=== PATIENT | female | born 1995 | race Caucasian/White ===

== ENCOUNTER 2016-04-18 09:10 | Emergency (ER) | payer OTHER ==
[~2016-04-18] VITALS: Ht 170.2 cm; Wt 60.3 kg
[~2016-04-18 09:10] MED LIST: ADVAIR HFA120 INHALA IH; ANAPROX DS550 M1 PO; AZITHROMYCIN250 MG1 PO; BACTRIM,SEPT1 TABLET PO; BUSPAR10 MG PO; CLONIDINE HCL0.1 MG PO; DELTASONE20 M1 PO; DOXYCYCLINE HY100 M3 PO; DOXYCYCLINE HY100 MG PO; FLEXERIL10 MG PO; FLEXERIL5 MG PO; GEODON40 MG PO; KEFLEX500 MG PO; LEXAPRO10 MG PO; LIDOCAINE20 MG/1 M5 PO; LIDODERM 5% P1 PATCH TD; LORTAB 5-325 M1 EACH PO; MEDROL DOSEPAK4 MG PO; MOBIC15 MG PO; MOTRIN600 MG PO; NAPROSYN500 MG PO; NICOTINE GUM2 MG BC; NOHOMEMEDS; PERCOCET 5/31 TABLET PO; PREDNISONE10 MG PO; PROBIOTIC1 EAC1 PO; PROVENTIL HFA6.7 GM IH; PULMICORT FLE180 MCG IH; PYRIDIUM100 MG PO; ROBITUSSIN AC,T10 ML PO; TRAZODONE HCL50 MG PO; ULTRAM50 MG PO; VENTOLIN HFA18 GM IH; XANAX2 MG PO; ZITHROMAX250 MG PO; ZOFRAN4 MG PO; ZOFRAN8 MG PO
[2016-04-18 10:11] LABS: EOSINOPHIL (%) 3.1 % (0-5); EOSINOPHIL COUNT 0.2 K/uL (0-0.3); HEMATOCRIT 37.3 % (36.0-46.0); LYMPHOCYTE COUNT 2.3 K/uL (1.0-2.8); MCH 28.7 PG (29.0-34.0); MCV 84.2 FL (83-99); MEAN PLAT.VOLUME 10.3 uM^3 (9.5-12.4); MONOCYTE (%) 9.4 % (3-12); MONOCYTE COUNT 0.5 K/uL (0-0.8); NEUTROPHIL (%) 41.9 % (45-76); NEUTROPHIL COUNT 2.2 K/uL (1.8-6.4); PLATELET COUNT 217 K/uL (156-360); RBC DIS.WIDTH-CV 13.8 % (11.8-14.6); RBC DIS.WIDTH-SD 41.2 % (39-53); RED BLOOD COUNT 4.43 M/uL (3.80-5.20); WHITE BLOOD COUNT 5.1 K/uL (4.1-10.2)
[2016-04-18 10:23] LABS: CHLORIDE 109 mEq/L (99-109); POTASSIUM 3.3 mEq/L (3.7-5.4); SODIUM 143 mEq/L (136-147)
[2016-04-18 10:25] LABS: GLUCOSE 75 mg/dL (70-99)
[2016-04-18 10:26] LABS: ANION GAP 14 MEQ/L (2-14)
[2016-04-18 10:27] LABS: TOTAL BILIRUBIN 0.4 mg/dL (0.0-1.0)
[2016-04-18 10:28] LABS: SERUM ETHYL ALCOHOL 155 mg/dL
[2016-04-18 10:29] LABS: GFR ESTIMATE (CALCULATED) > 59 mL/min/
[2016-04-18 10:30] LABS: ALKALINE PHOSPHATASE 65 IU/L (3-129)
[2016-04-18 10:31] LABS: UREA NITROGEN (BUN) 8 mg/dL (9-23)
[2016-04-18 10:32] LABS: SALICYLATE < 5.0 MG/DL (15-30)
[2016-04-18 10:33] LABS: ADD MIUA? YES; BILIRUBIN NEGATIVE; BLOOD NEGATIVE; COLOR YELLOW ((YELLOW)); GLUCOSE (STRIP) NEGATIVE; KETONES TRACE; LEUKOCYTES TRACE; NITRITE NEGATIVE; PROTEIN (STRIP) NEGATIVE; SPECIFIC GRAVITY 1.017 (1.000-1.030)
[2016-04-18 10:40] LABS: QUANTITATIVE HCG < 4.0 MIU/ML
[2016-04-18 10:44] LABS: AMPHETAMINE NEGATIVE (500 ng/mL); BENZODIAZEPINES PRESUMPTIVE POSITIVE (150 ng/mL); COCAINE PRESUMPTIVE POSITIVE (150 ng/mL); METHAMPHETAMINE NEGATIVE (500 ng/mL); OPIATES (MORPHINE) NEGATIVE (100 ng/mL); PHENCYCLIDINE PRESUMPTIVE POSITIVE (25 ng/mL); THC CANNABINOIDS NEGATIVE (50 ng/mL)
[2016-04-18 10:47] LABS: BARBITURATES NEGATIVE (200 ng/mL); METHADONE NEGATIVE (200 ng/mL); OXYCODONE NEGATIVE (100 ng/mL); PROPOXYPHENE NEGATIVE (300 ng/mL); TRICYCLIC ANTIDEPRESSANTS NEGATIVE (300 ng/mL)
[2016-04-18 10:48] LABS: ADD MEDTOX COMMENT Y; INTERNAL CONTROLS VALID? YES
[2016-04-18 11:07] LABS: BACTERIA NONE SEEN; CASTS NONE SEEN /LPF; CRYSTALS NONE SEEN; EPITHELIAL CELLS RARE; MUCUS NONE SEEN; RED BLOOD CELLS NONE SEEN /HPF (0-5); UCUL ADDED? NO; WHITE BLOOD CELLS RARE /HPF (0-5)
[2016-04-18 11:25] LABS: BENZODIAZEPINES QUANT VALUE 0 NG/ML
[2016-04-18 11:26] LABS: BENZODIAZEPINES, URINE SCREEN Negative (200 ng/mL)
[2016-04-18 17:32] VITALS: BP 105/52
== END 2016-04-18 17:47 | disposition home or self-care (01) ==
LOC: EME 09:10
PROVIDERS: Emergency Medicine
DX: F32.9 Major depressive disorder, single episode, unspecified (principal); F19.10 Other psychoactive substance abuse, uncomplicated; F14.10 Cocaine abuse, uncomplicated; J45.909 Unspecified asthma, uncomplicated; J44.9 Chronic obstructive pulmonary disease, unspecified; I10 Essential (primary) hypertension; F17.200 Nicotine dependence, unspecified, uncomplicated
CPT/HCPCS: 80053; 81003; 84702; 84999; 85025; 90837; 99281; 99285; G0480; J1630; J2060

== ENCOUNTER 2016-08-03 02:39 | Emergency (ER) | payer OTHER ==
[~2016-08-03] VITALS: Ht 170.2 cm; Wt 69.9 kg
[2016-08-03] MEDS ORDERED: NORCO 5/3251 TABLET PO (03:58)
[2016-08-03 04:13] VITALS: BP 125/80
== END 2016-08-03 03:52 | disposition home or self-care (01) ==
LOC: EME 02:39
PROC: 2W3SX1Z Immobilization of Right Foot using Splint (ICD-10-PCS; principal; 2016-08-03)
DX: S92.354A Nondisplaced fracture of fifth metatarsal bone, right foot, initial encounter for closed fracture (principal); W01.0XXA Fall on same level from slipping, tripping and stumbling without subsequent striking against object, initial encounter; Y93.02 Activity, running; F17.200 Nicotine dependence, unspecified, uncomplicated
CPT/HCPCS: 73630; 99281; 99283

== ENCOUNTER 2016-09-09 01:37 | Emergency (ER) | payer OTHER ==
[~2016-09-09] VITALS: Ht 170.2 cm; Wt 68.2 kg
[~2016-09-09 01:37] MED LIST changes: +NORCO 5/3251 TABLET PO
[2016-09-09 03:08] LABS: ADD MIUA? YES; BILIRUBIN SMALL; BLOOD NEGATIVE; COLOR YELLOW ((YELLOW)); GLUCOSE (STRIP) NEGATIVE; KETONES 5; LEUKOCYTES TRACE; NITRITE NEGATIVE; PROTEIN (STRIP) 30; SPECIFIC GRAVITY 1.027 (1.000-1.030)
[2016-09-09 03:10] LABS: EOSINOPHIL (%) 6.2 % (0-5); EOSINOPHIL COUNT 0.5 K/uL (0-0.3); HEMATOCRIT 40.1 % (36.0-46.0); IMMATURE GRANULOCYTE (%) 0.3 % (0.0-0.7); INSTRUMENT ABS NEUTROPHIL CT 3.9 K/uL; LYMPHOCYTE COUNT 2.6 K/uL (1.0-2.8); MCH 29.1 PG (29.0-34.0); MCHC 33.9 G/DL (30.0-36.0); MCV 85.9 FL (83-99); MONOCYTE (%) 7.3 % (3-12); MONOCYTE COUNT 0.6 K/uL (0-0.8); NEUTROPHIL (%) 51.5 % (45-76); NEUTROPHIL COUNT 3.9 K/uL (1.8-6.4); PLATELET COUNT 209 K/uL (156-360); RBC DIS.WIDTH-CV 13.2 % (11.8-14.6); RBC DIS.WIDTH-SD 41.1 % (39-53); RED BLOOD COUNT 4.67 M/uL (3.80-5.20); WHITE BLOOD COUNT 7.6 K/uL (4.1-10.2)
[2016-09-09 03:20] LABS: BACTERIA RARE /HPF; EPITHELIAL CELLS 1+ /HPF; MUCUS TRACE /LPF; RED BLOOD CELLS 0-5 /HPF (0-5); UCUL ADDED? NO; WHITE BLOOD CELLS 0-5 /HPF (0-5)
[2016-09-09 03:23] LABS: CHLORIDE 108 mEq/L (99-109); SODIUM 142 mEq/L (136-147)
[2016-09-09 03:25] LABS: GLUCOSE 77 mg/dL (70-99)
[2016-09-09 03:27] LABS: ANION GAP 9 MEQ/L (2-14); TOTAL BILIRUBIN 0.6 mg/dL (0.0-1.0)
[2016-09-09 03:29] LABS: ALKALINE PHOSPHATASE 79 IU/L (3-129); GFR ESTIMATE (CALCULATED) > 59 mL/min/
[2016-09-09 03:30] LABS: UREA NITROGEN (BUN) 11 mg/dL (9-23)
[2016-09-09 03:32] LABS: TROP-I INTERPRETATION NEGATIVE; TROPONIN-I 0.05 ng/mL (0.0-0.30)
[2016-09-09 03:38] LABS: QUANTITATIVE HCG < 4.0 MIU/ML
[2016-09-09] MEDS ORDERED: DOXYCYCLINE HY100 MG PO (05:32)
[2016-09-09] MEDS ORDERED: FLAGYL500 MG PO (05:32)
[2016-09-09] MEDS ORDERED: DIFLUCAN150 MG PO (05:32)
[2016-09-09 05:38] VITALS: BP 108/65
[2016-09-09 07:25] LABS: CANDIDA DNA PROBE NEGATIVE; GARDNERELLA DNA PROBE NEGATIVE; INTERNAL CONTROL VALID? YES
[2016-09-12 14:40] LABS: CHLAMYDIA TRACHOMATIS NEGATIVE; NEISSERIA GONORRHOEAE NEGATIVE
== END 2016-09-09 05:40 | disposition home or self-care (01) ==
LOC: EME 01:37
PROVIDERS: Emergency Medicine
DX: T76.21XA Adult sexual abuse, suspected, initial encounter (principal); N73.9 Female pelvic inflammatory disease, unspecified; N89.8 Other specified noninflammatory disorders of vagina; S00.12XA Contusion of left eyelid and periocular area, initial encounter; X58.XXXA Exposure to other specified factors, initial encounter; Z11.3 Encounter for screening for infections with a predominantly sexual mode of transmission; F17.200 Nicotine dependence, unspecified, uncomplicated
CPT/HCPCS: 70450; 71020; 76856; 80053; 81003; 84484; 84702; 85025; 87210; 87480; 87491; 87510; 87591; 87660; 99281; 99285; J0696; J7030; J7050

== ENCOUNTER 2016-10-20 19:58 | Emergency (ER) | payer OTHER ==
[~2016-10-20] VITALS: Ht 172.7 cm; Wt 65.0 kg
[~2016-10-20 19:58] MED LIST changes: +DIFLUCAN150 MG PO; +FLAGYL500 MG PO
[2016-10-20 23:52] LABS: HEMATOCRIT 41.8 % (36.0-46.0); MCH 29.5 PG (29.0-34.0); MCHC 34.2 G/DL (30.0-36.0); MCV 86.4 FL (83-99); PLATELET COUNT 156 K/uL (156-360); RBC DIS.WIDTH-CV 13.2 % (11.8-14.6); RBC DIS.WIDTH-SD 41.2 % (39-53); RED BLOOD COUNT 4.84 M/uL (3.80-5.20); WHITE BLOOD COUNT 6.1 K/uL (4.1-10.2)
[2016-10-21 00:26] LABS: CHLORIDE 106 mEq/L (99-109); POTASSIUM 4.2 mEq/L (3.7-5.4); SODIUM 142 mEq/L (136-147)
[2016-10-21 00:27] LABS: GLUCOSE 91 mg/dL (70-99)
[2016-10-21 00:28] LABS: QUANTITATIVE HCG < 4.0 MIU/ML
[2016-10-21 00:29] LABS: ANION GAP 8 MEQ/L (2-14)
[2016-10-21 00:31] LABS: GFR ESTIMATE (CALCULATED) > 59 mL/min/
[2016-10-21 00:37] LABS: ADD MIUA? YES; BILIRUBIN NEGATIVE; BLOOD NEGATIVE; COLOR YELLOW ((YELLOW)); GLUCOSE (STRIP) NEGATIVE; KETONES 5; LEUKOCYTES TRACE; NITRITE NEGATIVE; PROTEIN (STRIP) 30; SPECIFIC GRAVITY 1.021 (1.000-1.030)
[2016-10-21 00:52] LABS: UREA NITROGEN (BUN) 7 mg/dL (9-23)
[2016-10-21 01:31] LABS: AMORPHOUS URATES CRYSTALS 1+; BACTERIA 1+ /HPF; CRYSTALS PRESENT; EPITHELIAL CELLS 2+ /HPF; MUCUS 3+ /LPF; RED BLOOD CELLS NONE SEEN /HPF (0-5); UCUL ADDED? NO; WHITE BLOOD CELLS 0-5 /HPF (0-5)
[2016-10-21] MEDS ORDERED: FLAGYL500 MG PO (01:37)
[2016-10-21 01:54] VITALS: BP 129/80
[2016-10-21 12:19] LABS: CHLAMYDIA TRACHOMATIS NEGATIVE; NEISSERIA GONORRHOEAE NEGATIVE
== END 2016-10-21 01:55 | disposition home or self-care (01) ==
LOC: RME 19:58 → EME 19:58 → RME 10-21 01:55
PROVIDERS: Physician Assistant
DX: N89.8 Other specified noninflammatory disorders of vagina (principal); Z91.040 Latex allergy status; F17.200 Nicotine dependence, unspecified, uncomplicated
CPT/HCPCS: 80048; 81003; 84702; 85027; 87210; 87491; 87591; 99281; 99284

== ENCOUNTER 2016-11-05 23:57 | Emergency (ER) | payer OTHER ==
[~2016-11-05] VITALS: Ht 172.7 cm; Wt 65.9 kg
[2016-11-06 02:17] LABS: MCH 29.6 PG (29.0-34.0); MCHC 34.5 G/DL (30.0-36.0); MCV 85.7 FL (83-99); MEAN PLAT.VOLUME 10.3 uM^3 (9.5-12.4); RBC DIS.WIDTH-CV 13.1 % (11.8-14.6); RBC DIS.WIDTH-SD 40.8 % (39-53); WHITE BLOOD COUNT 12.1 K/uL (4.1-10.2)
[2016-11-06 02:18] LABS: PLATELET COUNT 243 K/uL (156-360)
[2016-11-06 02:27] LABS: CHLORIDE 107 mEq/L (99-109); POTASSIUM 3.6 mEq/L (3.7-5.4); SODIUM 141 mEq/L (136-147)
[2016-11-06 02:28] LABS: GLUCOSE 77 mg/dL (70-99)
[2016-11-06 02:30] LABS: ANION GAP 12 MEQ/L (2-14)
[2016-11-06 02:32] LABS: GFR ESTIMATE (CALCULATED) > 59 mL/min/
[2016-11-06 02:33] LABS: UREA NITROGEN (BUN) 6 mg/dL (9-23)
[2016-11-06 02:40] LABS: QUANTITATIVE HCG < 4.0 MIU/ML
[2016-11-06] MEDS ORDERED: ULTRAM50 MG PO (05:13)
[2016-11-06] MEDS ORDERED: MOTRIN800 MG PO (05:15)
[2016-11-06 11:23] VITALS: BP 107/64
== END 2016-11-06 11:25 | disposition home or self-care (01) ==
LOC: EME 23:57
PROVIDERS: Physician Assistant
DX: S00.83XA Contusion of other part of head, initial encounter (principal); S19.80XA Other specified injuries of unspecified part of neck, initial encounter; Y04.0XXA Assault by unarmed brawl or fight, initial encounter; X50.0XXA Overexertion from strenuous movement or load, initial encounter; S92.251A Displaced fracture of navicular [scaphoid] of right foot, initial encounter for closed fracture; Y93.02 Activity, running; J34.2 Deviated nasal septum
CPT/HCPCS: 70450; 70486; 70498; 73630; 73700; 80048; 84702; 85027; 90832; 99281; 99285; J2270; J2405

== ENCOUNTER 2016-11-14 04:29 | Emergency (ER) | payer OTHER ==
[~2016-11-14] VITALS: Ht 172.7 cm; Wt 64.6 kg
[~2016-11-14 04:29] MED LIST changes: +MOTRIN800 MG PO
[2016-11-14 06:20] VITALS: BP 119/74
== END 2016-11-14 06:30 | disposition home or self-care (01) ==
LOC: EME 04:29
PROC: 2W3SX1Z Immobilization of Right Foot using Splint (ICD-10-PCS; principal; 2016-11-14)
DX: S92.251D Displaced fracture of navicular [scaphoid] of right foot, subsequent encounter for fracture with routine healing (principal); F10.129 Alcohol abuse with intoxication, unspecified; J44.9 Chronic obstructive pulmonary disease, unspecified; I10 Essential (primary) hypertension; F17.200 Nicotine dependence, unspecified, uncomplicated
CPT/HCPCS: 99281; 99284

== ENCOUNTER 2016-12-05 04:48 | Emergency (ER) | payer OTHER ==
[~2016-12-05] VITALS: Ht 172.7 cm; Wt 65.1 kg
[2016-12-05 05:14] LABS: ADD MIUA? YES; BILIRUBIN NEGATIVE; BLOOD NEGATIVE; COLOR YELLOW ((YELLOW)); GLUCOSE (STRIP) NEGATIVE; KETONES 5; LEUKOCYTES TRACE; NITRITE NEGATIVE; PROTEIN (STRIP) NEGATIVE; SPECIFIC GRAVITY 1.019 (1.000-1.030); UROBILINOGEN 0.2 MG/DL (0.2-1.0)
[2016-12-05 05:24] LABS: BACTERIA NONE SEEN /HPF; EPITHELIAL CELLS 2+ /HPF; MUCUS TRACE /LPF; RED BLOOD CELLS 0-5 /HPF (0-5); UCUL ADDED? NO; WHITE BLOOD CELLS 0-5 /HPF (0-5)
[2016-12-05 06:31] VITALS: BP 150/67
[2016-12-05 12:54] LABS: CHLAMYDIA TRACHOMATIS NEGATIVE; NEISSERIA GONORRHOEAE NEGATIVE
== END 2016-12-05 06:29 | disposition home or self-care (01) ==
LOC: EME 04:48
PROVIDERS: Physician Assistant
PROC: 2W3QX1Z Immobilization of Right Lower Leg using Splint (ICD-10-PCS; principal; 2016-12-05)
DX: A64 Unspecified sexually transmitted disease (principal); S92.251D Displaced fracture of navicular [scaphoid] of right foot, subsequent encounter for fracture with routine healing; X58.XXXD Exposure to other specified factors, subsequent encounter; F17.200 Nicotine dependence, unspecified, uncomplicated
CPT/HCPCS: 81003; 84703; 87210; 87491; 87591; 99281; 99284; J0696

== ENCOUNTER 2016-12-17 15:58 | Emergency (ER) | payer OTHER ==
[~2016-12-17] VITALS: Ht 170.2 cm; Wt 68.1 kg
[2016-12-17 19:05] VITALS: BP 117/60
== END 2016-12-17 19:35 ==
LOC: EME 15:58
DX: F10.129 Alcohol abuse with intoxication, unspecified (principal); F19.10 Other psychoactive substance abuse, uncomplicated; Z02.89 Encounter for other administrative examinations; I10 Essential (primary) hypertension; F17.200 Nicotine dependence, unspecified, uncomplicated
CPT/HCPCS: 99281; 99283; J1630; J2060

== ENCOUNTER 2016-12-17 22:05 | Emergency (ER) | payer OTHER ==
[~2016-12-17] VITALS: Ht 170.2 cm; Wt 70.4 kg
[2016-12-17 23:02] LABS: HEMATOCRIT 39.8 % (36.0-46.0); MCH 29.4 PG (29.0-34.0); MCHC 33.9 G/DL (30.0-36.0); MCV 86.7 FL (83-99); MEAN PLAT.VOLUME 10.9 uM^3 (9.5-12.4); PLATELET COUNT 215 K/uL (156-360); RBC DIS.WIDTH-CV 13.4 % (11.8-14.6); RBC DIS.WIDTH-SD 42.2 % (39-53); RED BLOOD COUNT 4.59 M/uL (3.80-5.20); WHITE BLOOD COUNT 8.2 K/uL (4.1-10.2)
[2016-12-17 23:14] LABS: CHLORIDE 108 mEq/L (99-109); POTASSIUM 4.1 mEq/L (3.7-5.4); SODIUM 142 mEq/L (136-147)
[2016-12-17 23:16] LABS: GLUCOSE 73 mg/dL (70-99)
[2016-12-17 23:17] LABS: ANION GAP 14 MEQ/L (2-14)
[2016-12-17 23:18] LABS: TOTAL BILIRUBIN 0.4 mg/dL (0.0-1.0)
[2016-12-17 23:19] LABS: SERUM ETHYL ALCOHOL 125 mg/dL
[2016-12-17 23:20] LABS: GFR ESTIMATE (CALCULATED) > 59 mL/min/
[2016-12-17 23:21] LABS: ALKALINE PHOSPHATASE 79 IU/L (3-129)
[2016-12-17 23:22] LABS: UREA NITROGEN (BUN) 9 mg/dL (9-23)
[2016-12-17 23:23] LABS: SALICYLATE < 5.0 MG/DL (15-30)
[2016-12-17 23:24] LABS: CREATINE KINASE 466 IU/L (1-294); TOTAL CK 466 IU/L (1-294)
[2016-12-17 23:33] LABS: QUANTITATIVE HCG < 4.0 MIU/ML
[2016-12-17 23:34] LABS: CK-MB 2.6 ng/mL (0.0-4.9)
[2016-12-17 23:35] LABS: ADD MIUA? NO; BILIRUBIN NEGATIVE; BLOOD NEGATIVE; COLOR YELLOW ((YELLOW)); GLUCOSE (STRIP) NEGATIVE; KETONES 20; LEUKOCYTES NEGATIVE; NITRITE NEGATIVE; PROTEIN (STRIP) NEGATIVE; SPECIFIC GRAVITY 1.016 (1.000-1.030); UCUL ADDED? NO; UROBILINOGEN 0.2 MG/DL (0.2-1.0)
[2016-12-17 23:57] LABS: AMPHETAMINE NEGATIVE (500 ng/mL); BARBITURATES NEGATIVE (200 ng/mL); BENZODIAZEPINES PRESUMPTIVE POSITIVE (150 ng/mL); COCAINE PRESUMPTIVE POSITIVE (150 ng/mL); INTERNAL CONTROLS VALID? YES; METHADONE PRESUMPTIVE POSITIVE (200 ng/mL); METHAMPHETAMINE NEGATIVE (500 ng/mL); OPIATES (MORPHINE) NEGATIVE (100 ng/mL); OXYCODONE PRESUMPTIVE POSITIVE (100 ng/mL); PHENCYCLIDINE NEGATIVE (25 ng/mL); PROPOXYPHENE NEGATIVE (300 ng/mL); THC CANNABINOIDS PRESUMPTIVE POSITIVE (50 ng/mL); TRICYCLIC ANTIDEPRESSANTS NEGATIVE (300 ng/mL)
[2016-12-17 23:58] LABS: ADD MEDTOX COMMENT Y
[2016-12-18 00:50] VITALS: BP 120/62
[2016-12-18 01:02] LABS: BENZODIAZEPINES QUANT VALUE 0 NG/ML; BENZODIAZEPINES, URINE SCREEN Negative (200 ng/mL)
== END 2016-12-18 01:19 ==
LOC: EME → EDBD 22:05 → EME 12-18 01:19
PROVIDERS: Emergency Medicine
DX: F10.129 Alcohol abuse with intoxication, unspecified (principal); Y90.6 Blood alcohol level of 120-199 mg/100 ml; T50.991A Poisoning by other drugs, medicaments and biological substances, accidental (unintentional), initial encounter; F19.10 Other psychoactive substance abuse, uncomplicated; I10 Essential (primary) hypertension; F17.200 Nicotine dependence, unspecified, uncomplicated
CPT/HCPCS: 70450; 80053; 81003; 82550; 82553; 84702; 84999; 85027; 99281; 99285; G0480

== ENCOUNTER 2017-02-05 02:16 | Emergency (ER) | payer OTHER ==
[~2017-02-05] VITALS: Ht 170.2 cm; Wt 70.4 kg
[2017-02-05 02:30] LABS: POINT-OF-CARE METER ID UU13113702
[2017-02-05 02:31] VITALS: BP 132/77
[2017-02-05] MEDS ORDERED: PROAIR HFA8.5 GM IH (02:31)
== END 2017-02-05 02:32 ==
LOC: EME 02:16
DX: Z02.89 Encounter for other administrative examinations (principal); F11.90 Opioid use, unspecified, uncomplicated; Z91.040 Latex allergy status
CPT/HCPCS: 82948; 99281; 99283

== ENCOUNTER 2017-03-24 16:27 | Emergency (ER) | payer OTHER ==
[~2017-03-24] VITALS: Ht 167.6 cm; Wt 60.7 kg
[~2017-03-24 16:27] MED LIST changes: +PROAIR HFA8.5 GM IH
[2017-03-24 16:38] VITALS: BP 129/85
[2017-03-24 16:41] LABS: POINT-OF-CARE METER ID UU13113747
== END 2017-03-24 16:38 ==
LOC: EME 16:27
DX: F10.129 Alcohol abuse with intoxication, unspecified (principal); S50.812A Abrasion of left forearm, initial encounter; X58.XXXA Exposure to other specified factors, initial encounter; R45.1 Restlessness and agitation; J44.9 Chronic obstructive pulmonary disease, unspecified; F17.200 Nicotine dependence, unspecified, uncomplicated
CPT/HCPCS: 82948; 99281; 99284

== ENCOUNTER 2017-04-01 03:07 | Emergency (ER) | payer OTHER ==
[~2017-04-01] VITALS: Ht 170.2 cm; Wt 62.8 kg
[2017-04-01 03:44] LABS: ADD MIUA? YES; BILIRUBIN NEGATIVE; BLOOD NEGATIVE; COLOR YELLOW ((YELLOW)); GLUCOSE (STRIP) NEGATIVE; KETONES NEGATIVE; LEUKOCYTES TRACE; NITRITE NEGATIVE; PROTEIN (STRIP) 30; SPECIFIC GRAVITY 1.028 (1.000-1.030)
[2017-04-01 03:58] LABS: HEMATOCRIT 35.7 % (36.0-46.0); MCH 28.7 PG (29.0-34.0); MCHC 34.5 G/DL (30.0-36.0); MCV 83.4 FL (83-99); MEAN PLAT.VOLUME 10.5 uM^3 (9.5-12.4); PLATELET COUNT 203 K/uL (156-360); RBC DIS.WIDTH-CV 12.6 % (11.8-14.6); RBC DIS.WIDTH-SD 38.1 % (39-53); RED BLOOD COUNT 4.28 M/uL (3.80-5.20); WHITE BLOOD COUNT 5.5 K/uL (4.1-10.2)
[2017-04-01 04:15] LABS: CHLORIDE 104 mEq/L (99-109); POTASSIUM 3.9 mEq/L (3.7-5.4); SODIUM 138 mEq/L (136-147)
[2017-04-01 04:18] LABS: GLUCOSE 114 mg/dL (70-99)
[2017-04-01 04:19] LABS: ANION GAP 9 MEQ/L (2-14)
[2017-04-01 04:20] LABS: TOTAL BILIRUBIN 0.2 mg/dL (0.0-1.0)
[2017-04-01 04:21] LABS: ALKALINE PHOSPHATASE 82 IU/L (3-129); GFR ESTIMATE (CALCULATED) > 59 mL/min/
[2017-04-01 04:22] LABS: UREA NITROGEN (BUN) 15 mg/dL (9-23)
[2017-04-01 04:30] LABS: QUANTITATIVE HCG < 4.0 MIU/ML
[2017-04-01 04:51] VITALS: BP 134/70
[2017-04-01 07:34] LABS: EPITHELIAL CELLS NONE SEEN /HPF; MUCUS RARE /LPF; RED BLOOD CELLS NONE SEEN /HPF (0-5); WHITE BLOOD CELLS 0-5 /HPF (0-5)
[2017-04-01 07:35] LABS: BACTERIA RARE /HPF; CASTS NONE SEEN /LPF; CRYSTALS NONE SEEN; UCUL ADDED? NO
[2017-04-03 14:14] LABS: CHLAMYDIA TRACHOMATIS NEGATIVE; NEISSERIA GONORRHOEAE NEGATIVE
== END 2017-04-01 04:52 | disposition home or self-care (01) ==
LOC: EME 03:07
DX: R10.30 Lower abdominal pain, unspecified (principal); N89.8 Other specified noninflammatory disorders of vagina; Z20.2 Contact with and (suspected) exposure to infections with a predominantly sexual mode of transmission; J44.9 Chronic obstructive pulmonary disease, unspecified; I10 Essential (primary) hypertension; F17.200 Nicotine dependence, unspecified, uncomplicated; Z91.040 Latex allergy status
CPT/HCPCS: 80053; 81003; 84702; 85027; 87491; 87591; 99281; 99284; J0696

== ENCOUNTER 2017-04-06 14:53 | Emergency (ER) | payer OTHER ==
[~2017-04-06] VITALS: Ht 170.2 cm; Wt 61.2 kg
[2017-04-06 15:18] LABS: HEMATOCRIT 39.4 % (36.0-46.0); MCH 29.1 PG (29.0-34.0); MCV 82.9 FL (83-99); MEAN PLAT.VOLUME 10.5 uM^3 (9.5-12.4); PLATELET COUNT 242 K/uL (156-360); RBC DIS.WIDTH-CV 12.5 % (11.8-14.6); RBC DIS.WIDTH-SD 37.7 % (39-53); RED BLOOD COUNT 4.75 M/uL (3.80-5.20); WHITE BLOOD COUNT 6.6 K/uL (4.1-10.2)
[2017-04-06 15:30] LABS: CHLORIDE 105 mEq/L (99-109); POTASSIUM 4.2 mEq/L (3.7-5.4); SODIUM 138 mEq/L (136-147)
[2017-04-06 15:32] LABS: GLUCOSE 96 mg/dL (70-99)
[2017-04-06 15:33] LABS: ANION GAP 8 MEQ/L (2-14)
[2017-04-06 15:34] LABS: ADD MIUA? YES; BILIRUBIN NEGATIVE; BLOOD NEGATIVE; COLOR AMBER ((YELLOW)); GLUCOSE (STRIP) NEGATIVE; KETONES NEGATIVE; LEUKOCYTES TRACE; NITRITE NEGATIVE; PROTEIN (STRIP) NEGATIVE; SPECIFIC GRAVITY 1.025 (1.000-1.030); UROBILINOGEN 0.2 MG/DL (0.2-1.0)
[2017-04-06 15:36] LABS: ALKALINE PHOSPHATASE 68 IU/L (3-129); GFR ESTIMATE (CALCULATED) > 59 mL/min/
[2017-04-06 15:37] LABS: TOTAL BILIRUBIN 0.5 mg/dL (0.0-1.0); UREA NITROGEN (BUN) 7 mg/dL (9-23)
[2017-04-06 15:45] LABS: QUANTITATIVE HCG < 4.0 MIU/ML
[2017-04-06 15:49] LABS: BACTERIA RARE /HPF; EPITHELIAL CELLS 3+ /HPF; MUCUS 1+ /LPF; RED BLOOD CELLS 0-5 /HPF (0-5); UCUL ADDED? NO; WHITE BLOOD CELLS 0-5 /HPF (0-5)
[2017-04-06 18:09] VITALS: BP 134/85
[2017-04-07 13:32] LABS: CHLAMYDIA TRACHOMATIS NEGATIVE; NEISSERIA GONORRHOEAE NEGATIVE
== END 2017-04-06 18:09 | disposition home or self-care (01) ==
LOC: EME 14:53
PROVIDERS: Physician Assistant Medical
DX: N72 Inflammatory disease of cervix uteri (principal); R11.0 Nausea; R19.7 Diarrhea, unspecified; R30.0 Dysuria; Z20.2 Contact with and (suspected) exposure to infections with a predominantly sexual mode of transmission; Z11.3 Encounter for screening for infections with a predominantly sexual mode of transmission; J44.9 Chronic obstructive pulmonary disease, unspecified; F17.200 Nicotine dependence, unspecified, uncomplicated
CPT/HCPCS: 80053; 81003; 84702; 85027; 87210; 87491; 87591; 99281; 99284; J0696

== ENCOUNTER 2017-05-01 12:09 | Emergency (ER) | payer OTHER ==
[~2017-05-01] VITALS: Ht 170.2 cm; Wt 61.4 kg
[2017-05-01 13:57] LABS: SOURCE URINE
[2017-05-01 14:02] LABS: APPEARANCE CLOUDY ((CLEAR)); BILIRUBIN NEGATIVE; BLOOD NEGATIVE; COLOR AMBER ((YELLOW)); GLUCOSE (STRIP) NEGATIVE; KETONES NEGATIVE; LEUKOCYTES LARGE; NITRITE NEGATIVE; PROTEIN (STRIP) 30; SPECIFIC GRAVITY 1.031 (1.000-1.030); UROBILINOGEN 0.2 MG/DL (0.2-1.0)
[2017-05-01 14:38] LABS: RED BLOOD CELLS NONE SEEN /HPF (0-5)
[2017-05-01 14:39] LABS: BACTERIA 2+ /HPF; EPITHELIAL CELLS 3+ /HPF; MUCUS NONE SEEN /LPF; UCUL ADDED? YES; WHITE BLOOD CELLS 15-20 /HPF (0-5)
[2017-05-01] MEDS ORDERED: FLAGYL500 MG PO (16:44)
[2017-05-01 17:03] VITALS: BP 120/66
[2017-05-03 13:40] LABS: CHLAMYDIA TRACHOMATIS NEGATIVE; NEISSERIA GONORRHOEAE NEGATIVE
== END 2017-05-01 17:10 | disposition home or self-care (01) ==
LOC: EME 12:09
DX: N39.0 Urinary tract infection, site not specified (principal); N89.8 Other specified noninflammatory disorders of vagina; I10 Essential (primary) hypertension; J44.9 Chronic obstructive pulmonary disease, unspecified; F17.200 Nicotine dependence, unspecified, uncomplicated; Z91.040 Latex allergy status
CPT/HCPCS: 81003; 84703; 87086; 87210; 87491; 87591; 99281; 99284; J0696

== ENCOUNTER 2017-05-27 12:28 | Emergency (ER) | payer OTHER ==
[~2017-05-27] VITALS: Ht 172.7 cm; Wt 62.9 kg
[2017-05-27 13:40] LABS: HEMATOCRIT 38.4 % (36.0-46.0); HEMOGLOBIN 13.3 G/DL (11.9-15.5); MCH 28.9 PG (29.0-34.0); MCHC 34.6 G/DL (30.0-36.0); MCV 83.3 FL (83-99); PLATELET COUNT 209 K/uL (156-360); RBC DIS.WIDTH-CV 13.2 % (11.8-14.6); RBC DIS.WIDTH-SD 39.8 % (39-53); RED BLOOD COUNT 4.61 M/uL (3.80-5.20); WHITE BLOOD COUNT 15.8 K/uL (4.1-10.2)
[2017-05-27 13:49] LABS: ALBUMIN 4.5 g/dL (3.2-4.8); CHLORIDE 108 mEq/L (99-109); POTASSIUM 3.9 mEq/L (3.7-5.4); SODIUM 143 mEq/L (136-147)
[2017-05-27 13:52] LABS: TOTAL PROTEIN 7.4 g/dL (6.4-8.3)
[2017-05-27 13:53] LABS: GLUCOSE 44 mg/dL (70-99); TOTAL BILIRUBIN 0.4 mg/dL (0.0-1.0)
[2017-05-27 13:55] LABS: ALKALINE PHOSPHATASE 76 IU/L (3-129); CREATININE 0.8 mg/dL (0.6-1.3); GFR ESTIMATE (CALCULATED) > 59 mL/min/; SERUM ETHYL ALCOHOL 199 mg/dL
[2017-05-27 13:57] LABS: AST (GOT) 37 IU/L (2-34); UREA NITROGEN (BUN) 12 mg/dL (9-23)
[2017-05-27 13:58] LABS: ALT (GPT) 30 IU/L (3-49)
[2017-05-27 14:07] LABS: QUANTITATIVE HCG < 4.0 MIU/ML
[2017-05-27 22:57] VITALS: BP 111/58
== END 2017-05-27 22:58 | disposition home or self-care (01) ==
LOC: EME 12:28
PROVIDERS: Emergency Medicine
DX: F10.129 Alcohol abuse with intoxication, unspecified (principal); Y90.6 Blood alcohol level of 120-199 mg/100 ml; S91.311A Laceration without foreign body, right foot, initial encounter; Z04.6 Encounter for general psychiatric examination, requested by authority; X99.9XXA Assault by unspecified sharp object, initial encounter; Y07.03 Male partner, perpetrator of maltreatment and neglect; Y92.009 Unspecified place in unspecified non-institutional (private) residence as the place of occurrence of the external cause; E16.2 Hypoglycemia, unspecified; F19.10 Other psychoactive substance abuse, uncomplicated; Z23 Encounter for immunization; I10 Essential (primary) hypertension; J44.9 Chronic obstructive pulmonary disease, unspecified; F17.200 Nicotine dependence, unspecified, uncomplicated; Z91.040 Latex allergy status
CPT/HCPCS: 80053; 81003; 82948; 84702; 85027; 90832; 90837; 99281; 99285; G0480; J1630; J2060; J2250; J7030

== ENCOUNTER 2017-06-11 23:21 | Emergency (ER) | payer OTHER ==
[~2017-06-11] VITALS: Ht 170.2 cm; Wt 66.9 kg
[2017-06-12] MEDS ORDERED: MOTRIN600 MG PO (00:23)
[2017-06-12] MEDS ORDERED: AMOXICILLIN875 MG PO (00:23)
[2017-06-12 00:31] VITALS: BP 119/72
== END 2017-06-12 00:32 | disposition home or self-care (01) ==
LOC: EME 23:21
DX: J02.0 Streptococcal pharyngitis (principal); Z91.040 Latex allergy status
CPT/HCPCS: 87651 90; 99281; 99283

== ENCOUNTER 2017-12-05 19:43 | Emergency (ER) | payer OTHER ==
[~2017-12-05] VITALS: Ht 170.2 cm; Wt 60.2 kg
[~2017-12-05 19:43] MED LIST changes: +AMOXICILLIN875 MG PO
[2017-12-05 20:55] LABS: HEMATOCRIT 45.4 % (36.0-46.0); HEMOGLOBIN 15.5 G/DL (11.9-15.5); MCH 27.7 PG (29.0-34.0); MCHC 34.1 G/DL (30.0-36.0); MCV 81.1 FL (83-99); PLATELET COUNT 318 K/uL (156-360); RBC DIS.WIDTH-SD 37.8 % (39-53); WHITE BLOOD COUNT 11.8 K/uL (4.1-10.2)
[2017-12-05 21:41] LABS: CHLORIDE 105 mEq/L (99-109); POTASSIUM 3.5 mEq/L (3.7-5.4); SODIUM 139 mEq/L (136-147)
[2017-12-05 21:42] LABS: GLUCOSE 143 mg/dL (70-99)
[2017-12-05 21:46] LABS: CREATININE 0.8 mg/dL (0.6-1.3); GFR ESTIMATE (CALCULATED) > 59 mL/min/
[2017-12-05 21:47] LABS: UREA NITROGEN (BUN) 11 mg/dL (9-23)
[2017-12-05] MEDS ORDERED: ZOFRAN ODT4 MG PO (22:59)
[2017-12-05] MEDS ORDERED: CLONIDINE HCL0.1 MG PO (22:59)
[2017-12-05] MEDS ORDERED: TRAZODONE HCL50 MG PO (22:59)
[2017-12-05] MEDS ORDERED: THIAMINE HCL100 MG PO (23:00)
[2017-12-05 23:10] VITALS: BP 137/84
== END 2017-12-05 23:22 | disposition home or self-care (01) ==
LOC: EME 19:43
DX: F11.23 Opioid dependence with withdrawal (principal); F10.10 Alcohol abuse, uncomplicated; J44.9 Chronic obstructive pulmonary disease, unspecified; I10 Essential (primary) hypertension; F17.200 Nicotine dependence, unspecified, uncomplicated; Z91.040 Latex allergy status
CPT/HCPCS: 80048; 84702; 85027; 93005; 99281; 99284